=== PATIENT | male | born 1980 | race Caucasian/White ===

== ENCOUNTER 2018-12-29 13:54 | Emergency (ER) | payer OTHER ==
--- NOTE | 2018-12-29 14:58 | RAD ---
EXAM: Chest PA and lateral: HISTORY: Cough. COMPARISON: None FINDINGS: Heart: Normal cardiac silhouette Aorta: Unremarkable Pulmonary vessels: Normal Costophrenic angles: Costophrenic angles are clear. Lungs: No consolidation or masses. Pneumothorax: No pneumothorax Osseous structures: No osseous abnormalities IMPRESSION: No acute cardiopulmonary process.
[2018-12-29] MEDS ORDERED: Ketorolac Tromethamine 30 MG/ML VIAL ONE (15:19)
== END 2018-12-29 15:22 | disposition home or self-care (01) ==
LOC: SCSER 13:54
DX: R07.89 Other chest pain (principal); R05 Cough; E11.9 Type 2 diabetes mellitus without complications; E78.00 Pure hypercholesterolemia, unspecified; I10 Essential (primary) hypertension; E03.9 Hypothyroidism, unspecified; F31.9 Bipolar disorder, unspecified; F17.210 Nicotine dependence, cigarettes, uncomplicated
CPT/HCPCS: 71046; 96372; J1885